=== PATIENT | female | born 1970 | race African-American/Black ===

== ENCOUNTER 2019-04-05 13:20 | Emergency (ER) | payer MEDICAID ==
[~2019-04-05] VITALS: Ht 172.7 cm; Wt 78.0 kg
[2019-04-05] MEDS ORDERED: HYDROCODONE/ACETAMINOPHEN 5/325MG TABLET PO ONE (14:15)
[2019-04-05] MEDS ORDERED: ACETAMINOPHEN 325MG TABLET PO ONE (14:15)
[2019-04-05] MEDS ORDERED: AMLO-79 PO (14:29)
[2019-04-05] MEDS ORDERED: HYDROCHLOROTHIAZIDE 25MG TABLET PO ONE (15:30)
[2019-04-05 15:48] VITALS: BP 159/79
== END 2019-04-05 15:52 | disposition home or self-care (01) ==
LOC: ER 13:20
DX: S89.82XA Other specified injuries of left lower leg, initial encounter (principal); I10 Essential (primary) hypertension; Z79.899 Other long term (current) drug therapy; Z88.6 Allergy status to analgesic agent; V03.99XA Pedestrian with other conveyance injured in collision with car, pick-up truck or van, unspecified whether traffic or nontraffic accident, initial encounter; Y93.01 Activity, walking, marching and hiking; Y92.480 Sidewalk as the place of occurrence of the external cause; Y99.8 Other external cause status
CPT/HCPCS: 73590; 99283

== ENCOUNTER 2021-12-30 02:37 | Inpatient (IN) | payer MEDICAID ==
[~2021-12-30] VITALS: Ht 172.7 cm; Wt 73.0 kg
[~2021-12-30 02:37] MED LIST: AMLO-138 PO
[2021-12-30] MEDS ORDERED: LABETALOL HCL VIAL 20 MG/4 ML VIAL IV ONE (03:45)
[2021-12-30 04:59] LABS: BASOPHILS % 0.3 % (0.0-2.0); HEMATOCRIT. 44.6 % (36.0-48.0); HEMOGLOBIN. 15.1 g/dL (12.0-16.0); MEAN CORPUSCULAR VOLUME 97.3 fL (81.0-99.0); MEAN PLATELET VOLUME 8.6 fl (7.4-10.4); MONOCYTES % 8.8 % (2.0-8.0); NEUTROPHILS % 68.9 % (40.0-76.0); PLATELET 328 x1000/uL (130-400); RED BLOOD CELL COUNT 4.58 mill/uL (4.2-5.4); RED CELL DISTRIBUTION WIDTH 12.5 % (11.6-14.6)
[2021-12-30] MEDS ORDERED: LABETALOL HCL VIAL 20 MG/4 ML VIAL IV NR (05:00)
[2021-12-30 05:18] LABS: CHLORIDE 102 mEq/L (98-107)
[2021-12-30] MEDS ORDERED: CLONIDINE 0.1MG TABLET PO PRN (08:30)
[2021-12-30] MEDS ORDERED: PHENYLEPHRINE HCL 0.5% 15ML NASAL SPRAY BOTHNSTRLS SCH (09:15)
[2021-12-30] MEDS ORDERED: HYDRALAZINE 20MG/ML VIAL IV SCH (09:15)
[2021-12-30] MEDS ORDERED: TRANEXAMIC ACID 1,000 MG/10 ML TP ONE (09:30)
[2021-12-30] MEDS ORDERED: ENALAPRIL 1.25MG/ML VIAL 1ML IV SCH (09:30)
[2021-12-30] MEDS ORDERED: ONDANSETRON HCL 4MG/2ML INJ IV PRN (10:00)
[2021-12-30] MEDS ORDERED: ACETAMINOPHEN 325MG TABLET PO PRN (10:00)
[2021-12-30] MEDS ORDERED: POTASSIUM CHLORIDE INJ 40 MEQ in DEXT 5% WATER 250 ML IV ONE (10:00)
[2021-12-30] MEDS: KCL 20MEQ/100ML X 2 FOR TOTAL KCL 40MEQ/200ML IV SCH ×2 (11:00→13:00)
[2021-12-30] MEDS: NIFEDIPINE XL 60MG TAB PO SCH (14:14)
[2021-12-30 22:00] VITALS: BP 146/88
[2021-12-30 22:35] VITALS: BP 146/88
[2021-12-31] VITALS: BP 137/81
[2021-12-31 04:00] VITALS: BP 136/83
[2021-12-31 06:11] LABS: BASOPHILS % 0.3 % (0.0-2.0); EOSINOPHILS % 0.2 % (0.0-5.0); HEMATOCRIT. 34.9 % (36.0-48.0); HEMOGLOBIN. 11.6 g/dL (12.0-16.0); LYMPHOCYTES % 41.8 % (20.0-50.0); MEAN CORPUSCULAR HEMOGLOBIN 32.5 pg (28.0-32.0); MEAN CORPUSCULAR VOLUME 97.4 fL (81.0-99.0); MEAN PLATELET VOLUME 8.4 fl (7.4-10.4); NEUTROPHILS % 47.7 % (40.0-76.0); PLATELET 230 x1000/uL (130-400); RED BLOOD CELL COUNT 3.59 mill/uL (4.2-5.4); RED CELL DISTRIBUTION WIDTH 12.4 % (11.6-14.6)
[2021-12-31 06:39] LABS: CHLORIDE 110 mEq/L (98-107)
[2021-12-31 08:00] VITALS: BP 145/93
[2021-12-31] MEDS: NIFEDIPINE XL 60MG TAB PO SCH (09:09)
[2021-12-31 12:00] VITALS: BP 150/103
[2021-12-31] MEDS ORDERED: NIFE-32 PO (13:32)
[2021-12-31 14:10] VITALS: BP 150/103
== END 2021-12-31 15:20 | disposition home or self-care (01) | DRG 199 ==
LOC: ER 02:37 → 7WST 05:52 → EDBEDREQ 06:02
PROVIDERS: ADMIT Internal Medicine; ATTEND Internal Medicine
DX: I16.0 Hypertensive urgency (principal); E87.6 Hypokalemia; R04.0 Epistaxis; I10 Essential (primary) hypertension; Z88.8 Allergy status to other drugs, medicaments and biological substances
CPT/HCPCS: 36415; 71045; 80048; 80053; 83880; 84484; 85025; 93005; 99291; J0360; J3480; J3490

== ENCOUNTER 2022-01-11 23:16 | Emergency (ER) | payer MEDICAID ==
[~2022-01-11] VITALS: Ht 170.2 cm; Wt 72.0 kg
[~2022-01-11 23:16] MED LIST changes: -AMLO-138 PO; +NIFE-32 PO
[2022-01-12] MEDS ORDERED: OXYM30SP26 BOTHNSTRLS (01:51)
[2022-01-12 02:03] VITALS: BP 114/75
== END 2022-01-12 02:05 | disposition home or self-care (01) ==
LOC: ER 23:16
DX: I10 Essential (primary) hypertension (principal); R04.0 Epistaxis; Z88.6 Allergy status to analgesic agent
CPT/HCPCS: 99282

== ENCOUNTER 2022-09-07 11:24 | Emergency (ER) | payer MEDICAID ==
[~2022-09-07] VITALS: Ht 170.2 cm; Wt 71.0 kg
[~2022-09-07 11:24] MED LIST changes: +OXYM30SP26 BOTHNSTRLS
[2022-09-07 11:35] VITALS: BP 179/114
[2022-09-07 12:40] LABS: BASOPHILS % 0.4 % (0.0-2.0); HEMATOCRIT. 44.7 % (36.0-48.0); HEMOGLOBIN. 15.2 g/dL (12.0-16.0); LYMPHOCYTES % 23.4 % (20.0-50.0); MEAN CORPUSCULAR HEMOGLOBIN 33.6 pg (28.0-32.0); MEAN PLATELET VOLUME 7.7 fl (7.4-10.4); MONOCYTES % 7.4 % (2.0-8.0); NEUTROPHILS % 68.8 % (40.0-76.0); PLATELET 297 x1000/uL (130-400); RED BLOOD CELL COUNT 4.52 mill/uL (4.2-5.4); RED CELL DISTRIBUTION WIDTH 12.5 % (11.6-14.6)
[2022-09-07 12:43] LABS: CHLORIDE 107 mEq/L (98-107)
[2022-09-07] MEDS ORDERED: FAMO-135 MT (14:12)
[2022-09-07] MEDS ORDERED: CALC-823 PO (14:12)
== END 2022-09-07 14:32 | disposition home or self-care (01) ==
LOC: ER 11:24
DX: R10.84 Generalized abdominal pain (principal); I10 Essential (primary) hypertension
CPT/HCPCS: 36415; 80053; 85025; 99283

== ENCOUNTER 2022-09-17 08:23 | Emergency (ER) | payer MEDICAID ==
[~2022-09-17] VITALS: Ht 170.2 cm; Wt 71.0 kg
[~2022-09-17 08:23] MED LIST changes: +CALC-823 PO; +FAMO-135 MT
[2022-09-17] MEDS ORDERED: ACETAMINOPHEN 325MG TABLET PO STA (09:05)
[2022-09-17] MEDS ORDERED: ONDANSETRON HCL 4MG/2ML INJ IV STA (09:05)
[2022-09-17 09:12] LABS: BASOPHILS % 0.1 % (0.0-2.0); HEMATOCRIT. 46.4 % (36.0-48.0); HEMOGLOBIN. 15.7 g/dL (12.0-16.0); LYMPHOCYTES % 24.6 % (20.0-50.0); MEAN CORPUSCULAR HEMOGLOBIN 33.9 pg (28.0-32.0); MEAN CORPUSCULAR VOLUME 100.1 fL (81.0-99.0); MEAN PLATELET VOLUME 7.6 fl (7.4-10.4); MONOCYTES % 8.1 % (2.0-8.0); NEUTROPHILS % 67.2 % (40.0-76.0); PLATELET 290 x1000/uL (130-400); RED BLOOD CELL COUNT 4.63 mill/uL (4.2-5.4); RED CELL DISTRIBUTION WIDTH 12.4 % (11.6-14.6)
[2022-09-17] MEDS ORDERED: SODIUM CHLORIDE 0.9% 1,000 ML IV ONE (09:15)
[2022-09-17 09:19] LABS: CHLORIDE 106 mEq/L (98-107)
[2022-09-17 09:30] LABS: ETHANOL BLOOD < 10 mg/dL
[2022-09-17 09:31] LABS: ETHANOL BLOOD < 10 mg/dL
[2022-09-17 11:41] LABS: CLARITY URINE CLOUDY (CLEAR); COLOR URINE YELLOW (YELLOW); KETONES URINE 3+ (NEGATIVE); LEUKOCYTE ESTERASE URINE TRACE (NEGATIVE); NITRITE URINE NEGATIVE (NEGATIVE); OCCULT BLOOD URINE NEGATIVE (NEGATIVE); PH URINE 6.5 (4.5-8.0); PROTEIN URINE 1+ (NEGATIVE); SPECIFIC GRAVITY URINE 1.024 (1.005-1.030)
[2022-09-17 12:03] LABS: *AMPHETAMINES SCREEN URINE NEGATIVE (NEGATIVE); *BARBITURATES SCREEN URINE NEGATIVE (NEGATIVE); *BENZODIAZEPINES SCREEN URINE NEGATIVE (NEGATIVE); *COCAINE SCREEN URINE NEGATIVE (NEGATIVE); CANNABINOID URINE SCREEN PRESUMTIVE POSITIVE (NEGATIVE); METHADONE URINE SCREEN NEGATIVE (NEGATIVE); OPIATES URINE SCREEN NEGATIVE (NEGATIVE); PHENCYCLIDINE URINE SCREEN NEGATIVE (NEGATIVE)
[2022-09-17 13:00] VITALS: BP 139/98
[2022-09-17] MEDS ORDERED: DICY10CA88 MT (13:54)
[2022-09-17] MEDS ORDERED: ACET-2708 MT (13:54)
[2022-09-17] MEDS ORDERED: ONDA4TAB50 MT (13:54)
== END 2022-09-17 14:04 | disposition home or self-care (01) ==
LOC: ER 08:23
DX: K57.90 Diverticulosis of intestine, part unspecified, without perforation or abscess without bleeding (principal); D25.9 Leiomyoma of uterus, unspecified; I10 Essential (primary) hypertension; F12.90 Cannabis use, unspecified, uncomplicated; Z88.6 Allergy status to analgesic agent; Z79.899 Other long term (current) drug therapy
CPT/HCPCS: 36415; 71045; 74176; 80053; 80305; 80320; 81003; 83690; 85025; 96361; 96374; 99285; J2405; J7030; Z7610; G0480